=== PATIENT | female | born 1970 | race Caucasian/White ===

== ENCOUNTER 2018-01-22 16:39 | Inpatient (IN) ==
[2018-01-22] MEDS ORDERED: IOPAMIDOL 100 ML BOTTLE IV ONE (16:40)
[2018-01-22] MEDS ORDERED: 0.9 % SODIUM CHLORIDE 1,000 ML IV ONE (17:03)
[2018-01-22 18:16] LABS: Basophils # (Auto) 0 K/mcL (0.0-0.3); Basophils % (Auto) 0.1 % (0.0-2.0); Eosinophils # (Auto) 0.1 K/mcL (0.0-0.7); Eosinophils % (Auto) 0.3 % (0.0-7.0); Granulocytes % (Auto) 86.4 % (38.0-78.0); Lymphocytes # (Auto) 1.5 K/mcL (1.5-4.8); Lymphocytes % (Auto) 8.4 % (15.5-49.0); Mean Cell Volume 80.6 fL (80.0-100.0); Mean Corpuscular Hemoglobin 25.8 pg (26.0-34.0); Monocytes # (Auto) 0.8 K/mcL (0.1-0.9); Monocytes % (Auto) 4.8 % (1.0-12.0); Platelet Count 321 K/mcL (140-440); RBC 5.11 M/mcL (4.00-5.20)
[2018-01-22] MEDS ORDERED: VANCOMYCIN 1,000 MG in 0.9 % SODIUM CHLORIDE 250 ML IV ONE (18:25)
[2018-01-22 18:33] LABS: ALT/SGPT 22 U/l (0-40); Albumin 4.3 gm/dL (3.2-5.2); Alkaline Phosphatase 66 U/L (39-117); Blood Urea Nitrogen 14 mg/dl (6-20); C-Reactive Protein 2.6 mg/dl (0.0-0.8)
--- NOTE | 2018-01-22 19:34 | Emergency Department Note ---
General Adult HPI - General Chief complaint: Fever Stated complaint: Fever Time Seen by Provider: 01/22/18 16:50 Source: patient Mode of arrival: ambulatory Limitations: no limitations - History of Present Illness HPI Narrative: The patient is a 47-year-old female who presents today with complaints of left ankle pain, skin rash and left groin lymphadenopathy. She reports that in November she was diagnosed with sepsis from an infection on the left ankle and was transferred to [facility] where she was therefore a week. She reports she was discharged on ciprofloxacin and then change to a different antibiotic. She was last on an oral antibiotic 2 weeks ago and then told to stop. She reports that she woke up this morning and her left ankle had a sore on it that was new and a rash on the left lateral ankle. She is endorsing some discomfort with palpation of that area. Also feeling some discomfort in the left groin. She does not trust her thermometer at home so was not sure if she had a fever at home. Eating and drinking well without issue. - Related Data Home Medications Medication Instructions Recorded Confirmed No Known Home Meds 01/22/18 01/22/18 Allergies Allergy/AdvReac Type Severity Reaction Status Date / Time ciprofloxacin Allergy Mild Muscle Pain Verified 01/22/18 16:40 Review of Systems All systems ED: reviewed and negative except as stated. Past Medical History - Past Medical History Attestation: Yes: The following information was validated with the patient. Medical history: Reports: other (Bronchitis, pneumonia, hearing loss left sided , sinusitis, parotitis) Surgical history ED: Reports: , other (tubal ligation, ) - Social History smoking status: Former smoker Alcohol use: Reports: Occasionally Drug use: Reports: none Physical Exam Limitations: no limitations General appearance: alert, in no apparent distress Head: atraumatic, normocephalic ENT: normal exam Neck: Present: normal inspection Chest: Present: normal inspection Respiratory: Present: normal lung sounds bilaterally Cardiovascular: Present: regular rate, normal rhythm Abdominal: Present: soft, normal bowel sounds Neurological: Present: alert, oriented X3 Skin: Present: warm, dry, other (erythema and warmth at the left lateral ankle with a sore on the lateral heel edge, non draining and then a rash extending up to just above the lateral malleolus, patient has pain on palpation of the left posterior calf, left inguinal lymph nodes were palpated and patient expressed pain but no lymphadenopathy was appreciated) Course Course Narrative: Patient presents with a fever of 100.6 Fahrenheit. She is not tachycardic or hypotensive. Concerned as she has a history of MRSA and this is how her last bout of sepsis began with an infection of the skin on the left foot.We'll get blood work today and started IV fluids. - Reevaluation(s) Reevaluation #1: White blood cell count returned at 17.4. With this and the patient's fever of 100.6 she does meet sepsis criteria with the source of cellulitis of the left lower leg. Vital Signs Temperature 100.6 F H 01/22/18 16:41 Pulse Rate 82 01/22/18 16:41 Respiratory Rate 20 01/22/18 16:41 Blood Pressure 148/88 01/22/18 16:41 Pulse Oximetry (%) 97 01/22/18 16:41 Temperature 99.5 F H 01/22/18 19:24 Pulse Rate 82 01/22/18 16:41 Respiratory Rate 20 01/22/18 16:41 Blood Pressure 148/88 01/22/18 16:41 Pulse Oximetry (%) 97 01/22/18 16:41 Medical Decision Making - MDM Narrative Medical decision making narrative: Patient does meet sepsis criteria due to cellulitis. Surgery amount with IV vancomycin and fluids were started. I talked to the hospitalist who agreed to accept the patient and is ordering a CT of her left ankle to rule out osteomyelitis. - Lab Data Lab results reviewed: Yes I reviewed the patient's lab results. Result diagrams: 01/22/18 17:21 01/22/18 17:21 Lab Results 01/22/18 01/22/18 01/22/18 Range/Units 17:21 17:21 17:21 WBC 17.4 H (4.5-11.0) K/mcL RBC 5.11 (4.00-5.20) M/mcL Hgb 13.2 (12.0-15.0) g/dL Hct 41.2 (36.0-48.0) % MCV 80.6 (80.0-100.0) fL MCH 25.8 L (26.0-34.0) pg MCHC 32.0 (31.0-36.0) g/dL RDW 16.0 H (11.5-14.5) % Plt Count 321 (140-440) K/mcL MPV 8.6 (7.4-10.4) fL Gran % 86.4 H (38.0-78.0) % Lymph % (Auto) 8.4 L (15.5-49.0) % [place] % (Auto) 4.8 (1.0-12.0) % Eos % (Auto) 0.3 (0.0-7.0) % Baso % (Auto) 0.1 (0.0-2.0) % Gran # 15.1 H (1.8-8.0) K/mcL Lymph # (Auto) 1.5 (1.5-4.8) K/mcL [place] # (Auto) 0.8 (0.1-0.9) K/mcL Eos # (Auto) 0.1 (0.0-0.7) K/mcL Baso # (Auto) 0 (0.0-0.3) K/mcL VBG Lactic Acid 1.9 (0.5-2.2) mmol/L Sodium 135 (133-145) mmol/L Potassium 4.0 (3.3-5.1) mmol/L Chloride 96 (96-108) mmol/L Carbon Dioxide 23 (22-30) mmol/L Anion Gap 16.0 (8-16) BUN 14 (6-20) mg/dl Creatinine 0.8 (0.6-1.1) mg/dl GFR Calculation 87 Glucose 101 (70-105) mg/dL Calcium 9.7 (8.6-10.4) mg/dl Total Bilirubin 0.6 (0.0-1.0) mg/dL AST 18 (0-37) U/l ALT 22 (0-40) U/l Alkaline Phosphatase 66 (39-117) U/L C-Reactive Protein 2.6 H (0.0-0.8) mg/dl Total Protein 8.5 H (5.9-8.4) gm/dL Albumin 4.3 (3.2-5.2) gm/dL Globulin 4.2 H (2.2-3.7) gm/dL Albumin/Globulin Ratio 1.0 (1.0-2.3) Disposition 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) Condition: Good Referrals: Domingo Byers DO [Primary Care Provider] -
[2018-01-22] MEDS ORDERED: ACETAMINOPHEN 325 MG TABLET PO PRN (19:59)
[2018-01-22] MEDS ORDERED: VANCOMYCIN PER PHARMACY IV SCH (19:59)
[2018-01-22] MEDS ORDERED: MAGNESIUM HYDROXIDE 30 ML ORAL.SUSP PO PRN (19:59)
[2018-01-22] MEDS ORDERED: ALBUTEROL SULFATE 2.5 MG/3 ML NEBULIZER NEB PRN (19:59)
[2018-01-22] MEDS ORDERED: oxyCODONE HCL 5 MG TABLET PO PRN (19:59)
[2018-01-22] MEDS ORDERED: ONDANSETRON 4 MG/2 ML VIAL IV PRN (19:59)
[2018-01-22] MEDS ORDERED: VANCOMYCIN 500 MG in 0.9 % SODIUM CHLORIDE 100 ML IV ONE (20:15)
[2018-01-22] MEDS: LACTATED RINGERS 1,000 ML IV SCH (20:22)
[2018-01-22] MEDS: HEPARIN 5,000 UNIT/ML VIAL SQ SCH (21:01)
[2018-01-22] MEDS ORDERED: PIPERACILLIN SODIUM/TAZOBACTAM 3.375 GM in DEXTROSE 5% IN WATER 50 ML IV SCH (22:00)
--- NOTE | 2018-01-22 22:04 | Internal Med History&Physical ---
Medical - H&P: HPI Patient information: Note initiated : 01/22/18 at 10:00 pm Service Date, if different from initiated Date: [] Patient: Rafaela Yang a 47 y/o F admitted on 01/22/18 for Fever. Chief Complaint: [] History of present illness: Ms. Yang is a 47 year old F with history of cellulitis in the left foot approximately 2 months ago comes to the hospital today for evaluation of swelling redness and fever that started from this morning. The patient notes that approximately 2 weeks ago she had some soreness in the left foot, she also had elevated WBC count. There was also some concern for a urinary tract infection. Given her recent encounter with severe cellulitis, she was seen in urgent care setting and started on ciprofloxacin she took this medication for 3 days and developed severe myalgia this medication was changed to another antibiotic doxycycline. The patient's symptoms improved and the PCP stopped the medication. The patient noticed some ulceration on the left heel yesterday a small blister, does not recollect any trauma to the region, this morning she noticed that the lower part of the foot was red. The patient this morning also had subjective sensation of fever, she had some chills. Given that she was admitted with sepsis for a similar problem she came to the emergency room for further evaluation. The patient admits to having intermittent swelling in the lower extremities she denies any other complaints. She denies any headache no dizziness no changes in vision no difficulty in swallowing no cough no chest pain no shortness of breath no nausea no vomiting no bowel bladder complaints. No new joint pains. She appears to be perimenstrual and has been missing a few cycles intermittently. She also complained about some tenderness in the left groin. In the emergency room on presentation the patient had a low-grade temperature 100.6, heart rate 82 blood pressure 145/80 respiration 20 oxygen saturation 97% on room air. Her WBC count was elevated at 17,000 hemoglobin 13 platelets 321. Sodium 135 potassium 4.0 creatinine 0.8 CRP mildly elevated at 2.6. Lactic acid 1.9. Given persistent fever elevated WBC count history of severe sepsis and a recent course of outpatient antibiotics the patient has been admitted to the hospital for further management. Blood cultures were sent patient started on vancomycin and Zosyn All systems: reviewed and no additional remarkable complaints except as stated ( As per HPI rest negative) Medical - H&P: PMH Medical history: Obesity Recent cellulitis in the left lower extremity Surgical history: Mastoid surgery as a child section Tubal ligation Pertinent family history: Father with a history of diabetes Social history: Ex-smoker Occasional marijuana use Social alcohol use lives with Medical - H&P: Meds Home Medications Medication Instructions Recorded Confirmed Type No Known Home Meds 01/22/18 01/22/18 History Allergies Allergy/AdvReac Type Severity Reaction Status Date / Time ciprofloxacin Allergy Mild Muscle Pain Verified 01/22/18 16:40 Medical - H&P: Exam - Constitutional Vitals: Temp Pulse Resp BP Pulse Ox 100.9 F H 82 20 148/88 97 01/22/18 21:01 01/22/18 20:03 01/22/18 20:03 01/22/18 20:03 01/22/18 20:03 Exam: GENERAL: The patient is a well-developed, well-nourished in no apparent distress. Is alert and oriented x3. Obese individual VITAL SIGNS: Reviewed and as noted elsewhere. HEENT: Head is normocephalic and atraumatic. Extraocular muscles are intact. Pupils are equal, round, and reactive to light. Nares appeared normal. Mouth appears any without lesions. Mucous membranes are moist. NECK: Normal to inspection, Supple, No lymphadenopathy or thyromegaly. LUNGS: Air entry equal on both sides, no wheezing, crackles or rhonchi noted. No accessory muscles of respiration HEART: Regular rate and rhythm normal, S1 and S2 heard, no Gallop, S3 or Rub Noted, No Gross murmur heard. ABDOMEN: Soft, nontender, and nondistended. Positive bowel sounds. No hepatosplenomegaly was noted. EXTREMITIES: No cyanosis, clubbing, rash, , patient has mild pitting edema +1 in both legs. The patient's left lower extremity on the heel there is a very mild blister, approximately half a centimeter in size the patient has increased warmth and erythema in the lower extremity in the posterior aspect. She is able to move her toes pulses present NEUROLOGIC: Cranial nerves II through XII are grossly intact. Motor and Sensory System Grossly Intact PSYCHIATRIC: Normal affect, Normal Mood. Appropriate Behavior. SKIN: No ulceration or wounds noted, No jaundice, No rash noted. Medical - H&P: Reslt - Labs CBC & Chem 7: 10/19/18 17:21 01/22/18 17:21 Labs: Short CBC 01/22/18 Range/Units 17:21 WBC 17.4 H (4.5-11.0) K/mcL Hgb 13.2 (12.0-15.0) g/dL Hct 41.2 (36.0-48.0) % Plt Count 321 (140-440) K/mcL BMP 01/22/18 17:21 Sodium 135 Potassium 4.0 Chloride 96 Carbon Dioxide 23 BUN 14 Creatinine 0.8 Glucose 101 Calcium 9.7 Liver Function 01/22/18 Range/Units 17:21 Total Bilirubin 0.6 (0.0-1.0) mg/dL AST 18 (0-37) U/l ALT 22 (0-40) U/l Alkaline Phosphatase 66 (39-117) U/L Albumin 4.3 (3.2-5.2) gm/dL Medical - H&P: A/P - Narrative A/P Narrative: A/P Cellulitis Sepsis Obesity Plan Admit to Med surg IV vancomycin and rocephin for now. I dont think zosyn is warranted at this time. IV fluids Monitor labs, Educated at length need to care for feet Etiology of edema feet? TSH in november is normal, advised low salt diet, clinically does not appear to be in chf. Advised to talk to pcp regarding further evaluatinon, jessica cardiac. DVT hep sq Diet regular Full code.
[2018-01-22] MEDS ORDERED: cefTRIAXone 2 GM in DEXTROSE 5% IN WATER 50 ML IV SCH (22:15)
[2018-01-22] MEDS ORDERED: cefTRIAXone 1 GM VIAL ONE (23:08)
[2018-01-22] MEDS: 0.9 % SODIUM CHLORIDE 10 ML SYRINGE IV SCH (23:16)
[2018-01-23] MEDS: LACTATED RINGERS 1,000 ML IV SCH (04:16)
[2018-01-23] MEDS: 0.9 % SODIUM CHLORIDE 10 ML SYRINGE IV SCH ×4 (04:44→20:49)
[2018-01-23 05:45] LABS: Basophils # (Auto) 0 K/mcL (0.0-0.3); Basophils % (Auto) 0.1 % (0.0-2.0); Eosinophils # (Auto) 0 K/mcL (0.0-0.7); Eosinophils % (Auto) 0.2 % (0.0-7.0); Granulocytes % (Auto) 78.5 % (38.0-78.0); Lymphocytes # (Auto) 1.9 K/mcL (1.5-4.8); Lymphocytes % (Auto) 15.4 % (15.5-49.0); Mean Cell Volume 81.2 fL (80.0-100.0); Mean Corpuscular HGB Conc 32.1 g/dL (31.0-36.0); Monocytes # (Auto) 0.7 K/mcL (0.1-0.9); Monocytes % (Auto) 5.8 % (1.0-12.0); Platelet Count 299 K/mcL (140-440); RBC 4.54 M/mcL (4.00-5.20); Red Cell Distribution Width 16.6 % (11.5-14.5)
[2018-01-23 06:00] LABS: Hemoglobin A1C 5.5 % HGB (4.0-6.0)
[2018-01-23 07:29] LABS: proBNP 68.6 pg/ml (0-125)
[2018-01-23 07:47] LABS: ALT/SGPT 18 U/l (0-40); Albumin 3.6 gm/dL (3.2-5.2); Albumin/Globulin Ratio 0.9 (1.0-2.3); Alkaline Phosphatase 63 U/L (39-117); Bilirubin,Direct < 0.2 mg/dL (0.0-0.3); Blood Urea Nitrogen 10 mg/dl (6-20); Gamma Glutamyl Transpeptidase 15 U/L (5-36); Uric Acid 4.7 mg/dL (2.5-8.0)
--- NOTE | 2018-01-23 08:32 | Cat Scan Report ---
History: Fever, Cellulitis in the foot and ankle and evaluate for osteomyelitis TECHNIQUE: The left foot and ankle were imaged in axial plane following injection of intravenous contrast. Sagittal and coronal reformats were created. The radiation exposure was limited using dose reduction technology. FINDINGS: There is cellulitis surrounding the ankle and extending down to the foot. The greatest inflammation is located lateral to the ankle. No abscess is present. Bone windows show no bone erosion or periosteal elevation. There are large spurs on the plantar surface and posterior border of the calcaneus. There is no associated soft tissue inflammation. No joint effusion is detected in the foot or ankle. 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 No fracture or subluxation are present. IMPRESSION: Cellulitis No evidence of osteomyelitis or abscess Dr. Tsai was called with the results Interpreted and Authenticated by: Rohit Talley 01/23/18
[2018-01-23] MEDS ORDERED: cefTRIAXone 2 GM VIAL ONE (08:56)
[2018-01-23] MEDS: HEPARIN 5,000 UNIT/ML VIAL SQ SCH ×2 (09:06→20:49)
[2018-01-23] MEDS: VANCOMYCIN 1,500 MG in 0.9 % SODIUM CHLORIDE 500 ML IV SCH ×2 (09:12→20:49)
--- NOTE | 2018-01-23 09:31 | Internal Med Progress Note ---
Medical - PN: Subj Patient information: Note initiated : 01/23/18 at 9:29 am Service Date, if different from initiated Date: [] Patient: Rafaela Yang a 47 y/o F admitted on 01/22/18 for Fever. Chief Complaint: [] Interval history: Ms. Yang is a 47 year old F with history of cellulitis in the left foot approximately 2 months ago comes to the hospital today for evaluation of swelling redness and fever that started from this morning. The patient notes that approximately 2 weeks ago she had some soreness in the left foot, she also had elevated WBC count. There was also some concern for a urinary tract infection. Given her recent encounter with severe cellulitis, she was seen in urgent care setting and started on ciprofloxacin she took this medication for 3 days and developed severe myalgia this medication was changed to another antibiotic doxycycline. The patient's symptoms improved and the PCP stopped the medication. The patient noticed some ulceration on the left heel yesterday a small blister, does not recollect any trauma to the region, this morning she noticed that the lower part of the foot was red. The patient this morning also had subjective sensation of fever, she had some chills. Given that she was admitted with sepsis for a similar problem she came to the emergency room for further evaluation. The patient admits to having intermittent swelling in the lower extremities she denies any other complaints. She denies any headache no dizziness no changes in vision no difficulty in swallowing no cough no chest pain no shortness of breath no nausea no vomiting no bowel bladder complaints. No new joint pains. She appears to be perimenstrual and has been missing a few cycles intermittently. She also complained about some tenderness in the left groin. In the emergency room on presentation the patient had a low-grade temperature 100.6, heart rate 82 blood pressure 145/80 respiration 20 oxygen saturation 97% on room air. Her WBC count was elevated at 17,000 hemoglobin 13 platelets 321. Sodium 135 potassium 4.0 creatinine 0.8 CRP mildly elevated at 2.6. Lactic acid 1.9. Given persistent fever elevated WBC count history of severe sepsis and a recent course of outpatient antibiotics the patient has been admitted to the hospital for further management. Blood cultures were sent patient started on vancomycin and Zosyn 01/23 Patient seen and examined, no acute overnight events. The patient is no longer febrile. She still has some pain in the left lower leg erythema. However the erythema has not spread up. Patient otherwise feels well has no acute complaints Pertinent ROS: Denies headache, dizziness Denies chest pain, palpitations Denies cough or shortness of breath Denies abdominal pain, nausea or vomiting. - Constitutional Vitals: Vital Signs Temp Pulse Resp BP Pulse Ox 98.4 F 85 20 118/67 95 01/23/18 06:42 01/23/18 04:14 01/23/18 06:42 01/23/18 06:42 01/23/18 06:42 Period Temp Pulse Resp BP Sys/Berman Pulse Ox Last 24 Hr 98.3 F-100.9 F 82-106 16-20 109-148/64-88 92-97 Intake and Output 01/22/18 01/23/18 01/23/18 21:59 05:59 13:59 Intake Total 1000 / 1000 1550 / 1550 Output Total 400 / 400 1000 / 1000 Balance 600 / 600 550 / 550 Weight 268 lb 8 oz Intake & Output: Intake & Output 01/22/18 01/23/18 01/23/18 21:59 05:59 13:59 Intake Total 1000 / 1000 1550 / 1550 Output Total 400 / 400 1000 / 1000 Balance 600 / 600 550 / 550 Weight 268 lb 8 oz Intake: IV 1000 / 1000 1000 / 1000 Sodium Chloride 0.9% 1,000 ml @ 1000 / 1000 Wide Open IV BOLUS ONE Rx#: [id number] Lactated Ringers 1,000 ml @ 150 1000 / 1000 mls/hr IV .[id number] [facility] Rx#: [id number] Oral 550 / 550 Output: Void Amount 400 / 400 1000 / 1000 Other: Urine Appearance Clear Clear Urine Color Bright Yellow Pale Urine Odor Normal Normal Exam: Constitutional; Afebrile, cooperative, alert, not in distress. Eyes- No icterus, , No periorbital swelling Ears- Ext ear normal, hearing normal to conversation. Neck- Midline trachea, supple Respiratory system: Air Entry equal on both sides, No crackles or wheezing, no rhonchi. CVS- Rate rhythm regular, S1,S2 heard, no gallop, no rub. 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 Left lower extremity- erythema foot and ankle, upto lower 1/3 leg Medical - PN: Obj Da - Labs CBC & Chem 7: 01/23/18 04:10 01/23/18 04:10 Labs: Abnormal Lab Results 01/23/18 01/23/18 01/22/18 04:10 04:10 17:21 WBC 12.3 H Hgb 11.8 L MCH RDW 16.6 H Gran % 78.5 H Lymph % (Auto) 15.4 L Gran # 9.6 H C-Reactive Protein 2.6 H Total Protein 8.5 H Globulin 3.8 H 4.2 H Albumin/Globulin Ratio 0.9 L 01/22/18 17:21 WBC 17.4 H Hgb MCH 25.8 L RDW 16.0 H Gran % 86.4 H Lymph % (Auto) 8.4 L Gran # 15.1 H C-Reactive Protein Total Protein Globulin Albumin/Globulin Ratio Meds: Medications Acetaminophen (Tylenol) 650 mg PO Q6HP PRN PRN Reason: PAIN/FEVER > 101 Last Admin: 01/22/18 21:01 Dose: 650 mg Albuterol Sulfate (Ventolin) 2.5 mg NEB Q2HP PRN PRN Reason: Shortness Of Breath Heparin Sodium (Porcine) (Heparin) 5,000 unit SQ Q12 [facility] Last Admin: 01/23/18 09:06 Dose: 5,000 unit Vancomycin HCl 1,500 mg/ (Sodium Chloride) 500 mls @ 333.3 mls/hr IV Q12H [facility] Last Admin: 01/23/18 09:12 Dose: 250 mls/hr Ceftriaxone Sodium 2 gm/ (Dextrose) 50 mls @ 100 mls/hr IV DAILY [facility] Magnesium Hydroxide (Milk Of Magnesia) 30 ml PO DAILYP PRN PRN Reason: Constipation Ondansetron HCl (Zofran) 4 mg IV Q6HP PRN PRN Reason: Nausea And Vomiting Oxycodone HCl (Roxicodone) 5 mg PO Q4HP PRN PRN Reason: pain not responding to tylenol Sodium Chloride (Saline Flush) 10 ml IV Q8 [facility] Last Admin: 01/23/18 04:44 Dose: Not Given Vancomycin HCl (Vancomycin Per Pharmacy) 1 order IV UD [facility] Medical - PN: A/P - Time Spent With Patient Total time spent is greater than 50% in coordination of care (as documented) at patient's floor/unit and/or counseling patient: - Narrative A/P Narrative: A/P Cellulitis Sepsis Obesity Plan Patient doing well Continue vancomycin and Rocephin Await cultures Clinically responding well. DC IV fluids Anticipate discharge home if continues to improve on oral antibiotics DVT hep sq Diet regular Full code.
[2018-01-23] MEDS: cefTRIAXone 2 GM in DEXTROSE 5% IN WATER 50 ML IV SCH (13:45)
[2018-01-24] MEDS: 0.9 % SODIUM CHLORIDE 10 ML SYRINGE IV SCH (04:03)
[2018-01-24 06:05] LABS: Basophils # (Auto) 0 K/mcL (0.0-0.3); Basophils % (Auto) 0.4 % (0.0-2.0); Eosinophils # (Auto) 0.3 K/mcL (0.0-0.7); Eosinophils % (Auto) 3.3 % (0.0-7.0); Granulocytes % (Auto) 56.2 % (38.0-78.0); Lymphocytes # (Auto) 2.6 K/mcL (1.5-4.8); Lymphocytes % (Auto) 30.2 % (15.5-49.0); Mean Corpuscular HGB Conc 31.6 g/dL (31.0-36.0); Mean Corpuscular Hemoglobin 25.9 pg (26.0-34.0); Monocytes # (Auto) 0.9 K/mcL (0.1-0.9); Monocytes % (Auto) 9.9 % (1.0-12.0); Platelet Count 292 K/mcL (140-440); RBC 4.75 M/mcL (4.00-5.20); Red Cell Distribution Width 16.7 % (11.5-14.5)
[2018-01-24 06:53] LABS: ALT/SGPT 17 U/l (0-40); Albumin 3.7 gm/dL (3.2-5.2); Albumin/Globulin Ratio 1.1 (1.0-2.3); Alkaline Phosphatase 57 U/L (39-117); Bilirubin,Direct < 0.2 mg/dL (0.0-0.3); Blood Urea Nitrogen 9 mg/dl (6-20); Gamma Glutamyl Transpeptidase 17 U/L (5-36); Uric Acid 4.1 mg/dL (2.5-8.0)
[2018-01-24] MEDS: cefTRIAXone 2 GM in DEXTROSE 5% IN WATER 50 ML IV SCH (09:10)
[2018-01-24] MEDS: HEPARIN 5,000 UNIT/ML VIAL SQ SCH (09:23)
[2018-01-24] MEDS: VANCOMYCIN 1,500 MG in 0.9 % SODIUM CHLORIDE 500 ML IV SCH (09:49)
--- NOTE | 2018-01-24 11:05 | Discharge Summary ---
Medical - DS: Prov Patient information: Note initiated : 01/24/18 at 11:03 am Service Date, if different from initiated Date: [] Patient: Rafaela Yang 47 y/o F admitted on 01/22/18 for Fever. Chief Complaint: [] Date of admission: 01/22/18 19:52 Discharge date: 01/24/18 Primary care physician: Domingo Byers DO Discharging clinician: Donna Tsai Medical - DS: Meds - Discharge Medications Prescriptions: Cephalexin [Keflex] 500 mg PO QID #32 cap Furosemide [Lasix] 20 mg PO DAILY #30 tab Sulfamethoxazole/Trimethoprim [Bactrim Ds Tablet] 1 each PO BID #16 tab Active and Home Medications: Home Medications No Known Home Meds 01/22/18 [History Confirmed 01/22/18 Last Taken Unknown] Medical - DS: Hosp Hospital course: Ms. Yang is a 47 year old F with history of cellulitis in the left foot approximately 2 months ago comes to the hospital for evaluation of swelling redness and fever that started from this morning. The patient notes that approximately 2 weeks ago she had some soreness in the left foot, she also had elevated WBC count. There was also some concern for a urinary tract infection. Given her recent encounter with severe cellulitis, she was seen in urgent care setting and started on ciprofloxacin she took this medication for 3 days and developed severe myalgia this medication was changed to another antibiotic doxycycline. The patient's symptoms improved and the PCP stopped the medication. The patient noticed some ulceration on the left heel yesterday a small blister, does not recollect any trauma to the region, this morning she noticed that the lower part of the foot was red. The patient this morning also had subjective sensation of fever, she had some chills. Given that she was admitted with sepsis for a similar problem she came to the emergency room for further evaluation. The patient admits to having intermittent swelling in the lower extremities she denies any other complaints. She denies any headache no dizziness no changes in vision no difficulty in swallowing no cough no chest pain no shortness of breath no nausea no vomiting no bowel bladder complaints. No new joint pains. She appears to be perimenstrual and has been missing a few cycles intermittently. She also complained about some tenderness in the left groin. In the emergency room on presentation the patient had a low-grade temperature 100.6, heart rate 82 blood pressure 145/80 respiration 20 oxygen saturation 97% on room air. Her WBC count was elevated at 17,000 hemoglobin 13 platelets 321. Sodium 135 potassium 4.0 creatinine 0.8 CRP mildly elevated at 2.6. Lactic acid 1.9. Given persistent fever elevated WBC count history of severe sepsis and a recent course of outpatient antibiotics the patient has been admitted to the hospital for further management. Blood cultures were sent patient started on vancomycin and Zosyn The patients cellulitis was treated with vancomycin and rochepin, she responded to treatment well, blood culture are negative at the time of discharge, fever resolved, wbc count has normalized, and erythema is significantly improved. patient will be discharged home on po antibiotics, keflex and bactrim for another 8 days to complete a 10 day course. The patient also has some edema, which has been bothering her for the last few months. I will start the patient on 20mg po lasix for now, advised to follow up with PCP for monitoring of renal function as well as further evaluation of the edema. Her kidney liver functinos were normal, tsh normal in the hospital. low salt diet advised. She has obesity which is likely contributing, but would advise a formal workup as outpatient. The rest of the stay in the hospital was unremarkable, at the time of discharge the patient was tolerating p.o. diet well and ambulatory, afebrile. Wanting to go home Discharge diagnosis: cellulitis, sepsis - Time Spent with Patient Total time spent providing and/or coordinating discharge services: Greater than 30 minutes Medical - DS: Exam - Constitutional Vitals: Vital Signs Temp Pulse Resp BP Pulse Ox 01/24/18 07:10 97.5 F 16 117/82 96 01/24/18 04:00 97.9 F 77 18 116/68 93 01/23/18 23:19 98.3 F 77 20 121/77 94 01/23/18 19:47 97.9 F 80 18 117/74 95 01/23/18 15:59 97.5 F 20 110/64 92 01/23/18 12:00 97.2 F 20 140/88 95 Intake and Output 01/23/18 01/24/18 01/24/18 21:59 05:59 13:59 Intake Total 1180 / 1180 1150 / 1150 600 / 600 Output Total 1950 / 1950 Balance 1180 / 1180 -800 / -800 600 / 600 Intake: IV 50 / 50 500 / 500 Vancomycin 1,500 mg In Sodium 500 / 500 Chloride 0.9% 500 ml @ 333.3 mls/hr IV Q12H [facility] Rx#: [id number] Rocephin 2 gm In Dextrose 5% in 50 / 50 Water 50 ml @ 100 mls/hr IV DAILY [facility] Rx#:[id number] Oral 1130 / 1130 650 / 650 600 / 600 Output: Void Amount 1949 Other: Meal Dinner Breakfast Percent of Meal Consumed 100% 100% Feeding Ability Independent Independent Urine Appearance Clear Urine Color Bright Yellow Stool Size Moderate # Bowel Movements 1 Weight 269 lb Additional comments: Constitutional; Afebrile, cooperative, alert, not in distress. Eyes- No icterus, , No periorbital swelling Ears- Ext ear normal, hearing normal to conversation. Neck- Midline trachea, supple Respiratory system: Air Entry equal on both sides, No crackles or wheezing, no rhonchi. CVS- Rate rhythm regular, S1,S2 heard, no gallop, no rub. 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 left lower extremity- Much improved erythema, some erythema remains on the posterio aspect of the leg, but still improved from admission. Medical - DS: Data Labs on day of discharge: Labs from last 24 hours 01/24/18 01/24/18 01/24/18 07:40 04:15 04:15 WBC 8.7 RBC 4.75 Hgb 12.3 Hct 39.0 MCV 82.0 MCH 25.9 L MCHC 31.6 RDW 16.7 H Plt Count 292 MPV 8.8 Gran % 56.2 Lymph % (Auto) 30.2 Lipscomb % (Auto) 9.9 Eos % (Auto) 3.3 Baso % (Auto) 0.4 Gran # 4.9 Lymph # (Auto) 2.6 Lipscomb # (Auto) 0.9 Eos # (Auto) 0.3 Baso # (Auto) 0 Sodium 140 Potassium 4.3 Chloride 106 Carbon Dioxide 23 Anion Gap 11.0 BUN 9 Creatinine 0.6 GFR Calculation 107 Glucose 91 Uric Acid 4.1 Calcium 8.6 Phosphorus 3.1 Magnesium 2.1 Total Bilirubin < 0.2 Direct Bilirubin < 0.2 GGT 17 AST 18 ALT 17 Alkaline Phosphatase 57 Lactate Dehydrogenase 221 Total Protein 7.2 Albumin 3.7 Globulin 3.5 Albumin/Globulin Ratio 1.1 Triglycerides 138 Vancomycin Trough 9.1 Preliminary micro results at discharge 01/22/18 17:21 Blood Culture - Preliminary Blood 01/22/18 17:36 Blood Culture - Preliminary Blood Medical - DS: A/P - Patient/Caregiver Discharge Instructions Activity: increase activity as tolerated Diet: Regular Diet Additional Instructions: Please take antibiotics as prescribed. Take furosemide 20 mg once a day, this medication can cause electrode imbalances especially low potassium please take a diet rich in potassium. Make sure your regular provider at least checks your blood in approximately a couple of weeks to make sure that electrolytes are stable. Talk to your doctor with regards to further investigations of swelling in your legs Make sure that you wear comfortable shoes at all times, avoid any injuries to the leg. Go to the emergency room if the swelling redness worsens, if you develop fever chills or any other acute concerning symptom. Prescriptions: Cephalexin [Keflex] 500 mg PO QID #32 cap Furosemide [Lasix] 20 mg PO DAILY #30 tab Sulfamethoxazole/Trimethoprim [Bactrim Ds Tablet] 1 each PO BID #16 tab - Follow up Plan Follow up with: Domingo Byers DO [Primary Care Provider] - Disposition: Home, Self-Care Prognosis: Good Rehab Potential: Good I certify that the patient requires SNF services: No Overall status at discharge: patient is progressing back to baseline
== END 2018-01-24 12:15 | disposition home or self-care (01) | DRG 872 ==
LOC: ED 16:39 → MEDSUR 19:52
PROVIDERS: ADMIT Internal Medicine; ATTEND Internal Medicine
CPT/HCPCS: 99223; 99231; J0696; J1644; J3370; J7030; J7040; J7050; J7060; J7120; Q9967